=== PATIENT | female | born 1990 ===

== ENCOUNTER 2018-02-17 09:01 | Inpatient (IN) | payer OTHER ==
[~2018-02-17] VITALS: Ht 160 cm; Wt 79.8 kg
[~2018-02-17 09:01] MED LIST: BENADRYL50 MG PO; FIORICET 50-321 EACH PO
[2018-02-17] MEDS ORDERED: PRENATABS RX T1 EACH PO (09:19)
== END 2018-02-19 16:36 | disposition home or self-care (01) | DRG 807 ==
LOC: LDR 09:01 → OB/GYN 02-18 01:28
PROVIDERS: ADMIT Obstetrics & Gynecology
PROC: 10E0XZZ Delivery of Products of Conception, External Approach (ICD-10-PCS; principal; 2018-02-17)
PROC: 3E0P7VZ Introduction of Hormone into Female Reproductive, Via Natural or Artificial Opening (ICD-10-PCS; 2018-02-17)
PROC: 3E033VJ Introduction of Other Hormone into Peripheral Vein, Percutaneous Approach (ICD-10-PCS; 2018-02-17)
PROC: 4A1HXCZ Monitoring of Products of Conception, Cardiac Rate, External Approach (ICD-10-PCS; 2018-02-17)
DX: O80 Encounter for full-term uncomplicated delivery (principal); Z37.0 Single live birth; Z3A.38 38 weeks gestation of pregnancy; Z22.330 Carrier of Group B streptococcus

== ENCOUNTER 2020-09-21 21:10 | Emergency (ER) | payer OTHER ==
[~2020-09-21] VITALS: Ht 160 cm; Wt 80.7 kg
[~2020-09-21 21:10] MED LIST changes: +PRENATABS RX T1 EACH PO
== END 2020-09-21 22:48 | disposition home or self-care (01) ==
LOC: ER 21:10
DX: R51.9 Headache, unspecified (principal)

== ENCOUNTER 2020-10-22 15:00 | Inpatient (IN) | payer OTHER ==
[~2020-10-22] VITALS: Ht 160 cm; Wt 81.2 kg
== END 2020-10-24 15:41 | disposition home or self-care (01) | DRG 807 ==
LOC: OB/GYN 15:00 → LDR 15:00 → OB/GYN 23:58
PROVIDERS: ADMIT Obstetrics & Gynecology; ATTEND Obstetrics & Gynecology
PROC: 10E0XZZ Delivery of Products of Conception, External Approach (ICD-10-PCS; principal; 2020-10-22)
PROC: 10907ZC Drainage of Amniotic Fluid, Therapeutic from Products of Conception, Via Natural or Artificial Opening (ICD-10-PCS; 2020-10-22)
PROC: 4A1HXFZ Monitoring of Products of Conception, Cardiac Rhythm, External Approach (ICD-10-PCS; 2020-10-22)
DX: O80 Encounter for full-term uncomplicated delivery (principal); Z37.0 Single live birth; Z3A.39 39 weeks gestation of pregnancy; Z20.822 Contact with and (suspected) exposure to COVID-19